=== PATIENT | male | born 1945 | race Caucasian/White ===

== ENCOUNTER 2023-03-13 10:30 | Emergency (ER) | payer OTHER, SELFPAY ==
[2023-03-13 10:37] VITALS: BP 124/74; PULSE 51; RESP 16; TEMP 36.8; O2SAT 97
--- NOTE | 2023-03-13 10:45 | DI.CT_ITS ---
Exam(s) CT ABDOMEN PELVIS W EXAM: CT ABDOMEN PELVIS W CLINICAL HISTORY: perirectal pain, prior abscess,. TECHNIQUE: Imaging Protocol: Axial computed tomography images with coronal and sagittal reformatted images were created and reviewed CONTRAST MATERIAL: Intravenous: Omnipaque 350 Contrast volume:100 ml Oral: / no COMPARISON: No exams were available for comparison FINDINGS: ABDOMEN: Lung Bases: Normal where visualized. Liver: Normal density. No measurable mass. Gallbladder and biliary tract: No radiodense calculus or dilation. Pancreas: Somewhat atrophic. No abnormal calcifications or inflammatory process. Spleen: Normal. Kidneys: Normal size, contour and axis. No radiodense stones or obstructive uropathy. Small bilatera l renal cysts. No suspicious masses seen. Adrenal glands: No masses seen. Abdominal Aorta: Abdominal portion non-dilated. Soft tissues: Small fatty containing right inguinal hernia. Soft tissue stranding right upper anteri or thigh. PELVIS: Bladder: Mild wall thickening. No calculi.No focal mass. Bowel: Sigmoid diverticulosis. No evidence of diverticulitis. No obstruction. No bowel wall thick ening. Appendix normal. Peritoneal cavity: No ascites, collection or mesenteric inflammatory response. Bones: Unremarkable for age. Reproductive organs: Mildly enlarged prostate. Lymph nodes: Unremarkable. Impression: Unremarkable CT scan of the abdomen and pelvis. No evidence perirectal abscess. RADIATION DOSE DELIVERED: 1,001.52mGy.cm Total DLP DATA REPOSITORY: All CT scans at this facility are submitted to the National Radiology Data Registry (NRDR) Dose Index Registry (DIR) with the [employer] ([employer]). RADIATION OPTIMIZATION: All CT scans at this facility use at least one of these dose optimization te chniques: automated exposure control; mA and/or kV adjustment per patient size (includes targeted exa ms where dose is matched to clinical indication); or iterative reconstruction.
[2023-03-13 11:11] VITALS: RESP 15
[2023-03-13 11:13] LABS: Abs Immature Grans 0.02 10^3/uL (0.0-0.06); Absolute Basophil Count 0.04 10^3/uL (0.0-0.2); Absolute Lymphocyte Count 1.09 10^3/uL (1.2-3.4); Absolute Neutrophil Count 4.74 10^3/uL (1.2-6.7); Basophils % 0.6; HCT 48.2 % (40.0-50.0); HGB 16.9 g/dL (13.5-17.5); Immature Grans % 0.3; Lymphocytes % 16.3; MCH 32.3 pg (27.0-33.0); MCHC 35.1 % (32.0-36.0); MCV 92 fL (80-95); MPV 9.1 fL (8.0-11.0); Neutrophils % 70.8; Platelet Count 283 10^3/uL (130-400); RBC 5.24 10^6/uL (4.36-5.78); RDW 15.1 % (11.8-14.1); WBC 6.69 10^3/uL (4.4-10.8)
[2023-03-13 11:35] LABS: ALT 38 U/L (16-63); AST 30 U/L (15-37); Alkaline Phosphatase 69 U/L (46-116); Anion Gap 11.7 mmol/L (3-11); BUN 21 mg/dL (7-18); Bilirubin, Total 0.8 mg/dL (0.2-1.0); CO2 26.3 mmol/L (21.0-32.0); CREATININE 1.6 mg/dL (0.70-1.30); Calcium 9.3 mg/dL (8.5-10.1); Chloride 101 mmol/L (98-107); Glucose 190 mg/dL (74-106); Potassium 4.1 mmol/L (3.5-5.1); Sodium 139 mmol/L (136-145); Total Protein 7.9 g/dL (6.4-8.2)
[2023-03-13] MEDS: Normal Saline - Diluent 50 ML VIAL IJ (12:04)
[2023-03-13] MEDS: Omnipaque 350 MG/ML 100 ML BTL IJ (12:04)
[2023-03-13] MEDS: Normal Saline 500 ML IV (12:25)
--- NOTE | 2023-03-13 12:27 | ED.GENADUL_ITS ---
Discharge Plan Disposition Patient Disposition: Home Discharge Details Clinical Impression: Hemorrhoid Primary Care Provider: Unknown,Unknown ED Provider: Smita Zabala Home Meds and New Rx's Prescriptions: New Proctofoam HC 1-1 % foam 1 applic NH QID Qty: 10 0RF Continued furosemide 40 mg Tablet 40 mg 1XD atorvastatin 40 mg Tablet 40 mg PO DAILY cetirizine 10 mg Tablet 10 mg PO DAILY amiodarone 200 mg Tablet 200 mg PO BID clopidogrel 75 mg Tablet 75 mg PO DAILY spironolactone 25 mg Tablet 25 mg PO DAILY bisoprolol fumarate 10 mg Tablet 10 mg PO DAILY citalopram 20 mg Tablet 20 mg PO DAILY ascorbic acid (vitamin C) 500 mg Tablet 500 mg PO DAILY metformin 1,000 mg Tablet 1,000 mg PO BID omeprazole 20 mg Capsule,Delayed Release(Dr/Ec) 20 mg PO BID insulin glargine 100 unit/mL Cartridge 22 unit SUBCUT QAM ferrous gluconate 324 mg (37.5 mg iron) Tablet 324 mg PO DAILY empagliflozin 25 mg Tablet 25 mg PO DAILY aspirin 81 mg Capsule 81 mg PO DAILY Discharge Instructions Additional Instructions: Apply cream topically Recommend [id number] stool softener to prevent constipation as this will allow the lesion to heal Sitz bath's You may follow-up with your primary care doctor in 1 to 2 weeks for reassessment Continue to apply cream for the next 5 to 7 days return earlier should you have any worsening complaints Discharge Data Discharge Date/Time-TO BE ENTERED AT DEPARTURE: 03/13/23 13:09 Medical Decision Making Patient 78-year-old male with abscess concern to rectum Nontoxic in appearance, palpable area of tenderness on exam no significant induration or edema noted CT abdomen and pelvis was ordered to evaluate for perirectal abscess versus fistula versus rectal abnormality, no evidence of acute abnormality per radiology interpretation and my review Placed on hemorrhoidal cream and given referral to surgery Discharged home in stable condition with stable vitals Baseline bradycardia month compared to prior Return precautions reviewed and patient expressed understanding HPI General Date/Time Provider Initiated Documentation: 03/13/23 10:49 . HPI Narrative: This 78-year-old male with history of atrial fibrillation, hyperlipidemia, furosemide,, spironolactone, metformin, omeprazole, insulin-dependent diabetes presents with report of perirectal pain. States he has a history of same and had it drained approximately 9 years ago. He has not had recurrence until now. He denies any abdominal pain. He denies any fever or chills. Related Data Home Medications Medication Instructions Recorded Confirmed amiodarone 200 mg tablet 200 mg PO BID 03/13/23 03/13/23 ascorbic acid (vitamin C) 500 mg 500 mg PO DAILY 03/13/23 03/13/23 tablet aspirin 81 mg capsule 81 mg PO DAILY 03/13/23 03/13/23 atorvastatin 40 mg tablet 40 mg PO DAILY 03/13/23 03/13/23 bisoprolol fumarate 10 mg tablet 10 mg PO DAILY 03/13/23 03/13/23 cetirizine 10 mg tablet 10 mg PO DAILY 03/13/23 03/13/23 citalopram 20 mg tablet 20 mg PO DAILY 03/13/23 03/13/23 clopidogrel 75 mg tablet 75 mg PO DAILY 03/13/23 03/13/23 empagliflozin 25 mg tablet 25 mg PO DAILY 03/13/23 03/13/23 ferrous gluconate 324 mg (37.5 mg 324 mg PO DAILY 03/13/23 03/13/23 iron) tablet furosemide 40 mg tablet 40 mg 1XD 03/13/23 03/13/23 hydrocortisone 1 %-pramoxine 1 % 1 applic NH QID #10 grams 03/13/23 rectal foam (Proctofoam HC) insulin glargine 100 unit/mL 22 unit subcut QAM 03/13/23 03/13/23 subcutaneous cartridge metformin 1,000 mg tablet 1,000 mg PO BID 03/13/23 03/13/23 omeprazole 20 mg capsule,delayed 20 mg PO BID 03/13/23 03/13/23 release spironolactone 25 mg tablet 25 mg PO DAILY 03/13/23 03/13/23 Previous Rx's Medication Instructions Recorded hydrocortisone 1 %-pramoxine 1 % 1 applic NH QID #10 grams 03/13/23 rectal foam (Proctofoam HC) Allergies Allergy/AdvReac Type Severity Reaction Status Date / Time No Known Allergies Allergy Unverified 03/13/23 10:52 General Stated Complaint: [facility] ZAID: 4 PFSH All Active Problems (Updated 03/13/23 @ 12:57 by BIJAL Armenta) Hemorrhoid (Acute) Social History Smoking/Tobacco Use Status: Current every day Smoking risk assessment performed?: Yes Substance use type: does not use Do you feel safe at home: Yes Do you feel safe in your relationship?: Yes Exam Other: Small hemorrhoid noted and this exact position perirectal region, some mild swelling noted over prior scar and tenderness Mild tenderness with rectal exam Course Vital Signs Vital signs: Vital Signs Temperature 36.8 C 03/13/23 10:37 Pulse 51 L 03/13/23 10:37 Respiratory Rate 16 03/13/23 10:37 Blood Pressure 124/74 03/13/23 10:37 Pulse Oximetry 97 03/13/23 10:37 Temperature 36.8 C 03/13/23 10:37 Pulse 51 L 03/13/23 10:37 Respiratory Rate 15 03/13/23 11:11 Respiratory Effort Normal 03/13/23 11:11 Respiratory Depth Normal 03/13/23 11:11 Respiratory Pattern Normal 03/13/23 11:11 Blood Pressure 124/74 03/13/23 10:37 Pulse Oximetry 97 03/13/23 10:37 Oxygen Delivery Method Room Air 03/13/23 10:37 Oxygen Flow Rate 0 03/13/23 10:37 Pain Level 8 03/13/23 10:37 Comment Nothing taken for pain 03/13/23 10:37 Lab/Test Results Lab/Test Results: Laboratory Tests Range/Units 03/13/23 03/13/23 11:05 11:05 WBC (4.4-10.8) 10^3/uL 6.69 RBC (4.36-5.78) 10^6/uL 5.24 Hgb (13.5-17.5) g/dL 16.9 Hct (40.0-50.0) % 48.2 MCV (80-95) fL 92 MCH (27.0-33.0) pg 32.3 MCHC (32.0-36.0) % 35.1 RDW (11.8-14.1) % 15.1 H Plt Count (130-400) 10^3/uL 283 MPV (8.0-11.0) fL 9.1 Immature Gran % 0.3 Neutrophils % 70.8 Lymphocytes % 16.3 Monocytes % 9.0 Eosinophils % 3.0 Basophils % 0.6 Nucleated RBC % (0.0-0.3) % 0.0 Absolute Neutrophils (1.2-6.7) 10^3/uL 4.74 Absolute Lymphocytes (1.2-3.4) 10^3/uL 1.09 L Absolute Monocytes (0.1-0.8) 10^3/uL 0.60 Absolute Eosinophils (0.0-0.7) 10^3/uL 0.20 Absolute Basophils (0.0-0.2) 10^3/uL 0.04 Sodium (136-145) mmol/L 139 Potassium (3.5-5.1) mmol/L 4.1 Chloride (98-107) mmol/L 101 Carbon Dioxide (21.0-32.0) mmol/L 26.3 Anion Gap (3-11) mmol/L 11.7 H BUN (7-18) mg/dL 21 H Creatinine (0.70-1.30) mg/dL 1.6 H Est GFR (CKD-EPI 2020) (mL/min/1.73m2) 44.10 Glucose (74-106) mg/dL 190 H Calcium (8.5-10.1) mg/dL 9.3 Total Bilirubin (0.2-1.0) mg/dL 0.8 AST (15-37) U/L 30 ALT (16-63) U/L 38 Alkaline Phosphatase (46-116) U/L 69 Total Protein (6.4-8.2) g/dL 7.9 Albumin (3.4-5.0) g/dL 4.0
== END 2023-03-13 13:09 | disposition home or self-care (01) ==
PROVIDERS: Emergency Provider Physician Assistant
DX: K64.9 Unspecified hemorrhoids (principal)
CPT/HCPCS: 36415; 80053; 96360; 99285; 74177; 85025; 99284; J3490